=== PATIENT | female | born 1955 | race Caucasian/White ===

== ENCOUNTER → 2019-12-20 | Day surgery (SDC) | payer OTHER ==
[~2019-12-20] MED LIST: ALIGN4 MG PO; ASPIRIN325 MG PO; BENTYL10 MG PO; CLONAZEPAM1 MG PO; CYCLOBENZAPRINE10 MG PO; CYMBALTA30 MG PO; FENTANYL CITRATE/PF 100MCG/2 ML INJ ONE; FLEXERIL PO; GLUCAGON FOR INJ 1 MG VIAL ONE; HYDROCODONE PO; HYOSCYAMINE 0.125 MG TAB ONE; LANSOPRAZOLE30 MG PO; LIDOCAINE HCL 2% LOCAL INJ 5 ML SDV VIAL INJ ONE; MAGNESIUM OXID400 MG PO; MIDAZOLAM HCL 2 MG/2 ML VIAL ONE; OLANZAPINE5 MG PO; PANTOPRAZOLE SO40 MG PO; PROMETHAZINE HC25 M1 PO; PROPOFOL IV EMULSION 10 MG/ML 20 ML VIAL ONE; PROPRANOLOL HCL10 MG PO; RANITIDINE HCL300 MG PO; SIMVASTATIN80 MG PO; TAMOXIFEN CITRA20 MG PO; VENLAFAXINE HCL75 MG PO
[2019-12-20 13:25] VITALS: BP 140/83
--- NOTE | 2019-12-20 13:41 | Operative Report ---
DATE OF PROCEDURE: 12/20/2019 SURGEON: Abraham Lima MD PROCEDURE: Colonoscopy with polypectomy. INDICATION FOR COLONOSCOPY: Surveillance colonoscopy, personal history of colon polyp. MEDICATIONS: The patient was done under MAC, please see anesthesiologist's note. PROCEDURE IN DETAIL: With the patient in the left lateral decubitus position, a flexible fiberoptic Olympus colonoscope was inserted into the rectum with ease and advanced all the way to the cecum. A minute polyp was noted in the cecum that was removed per the cold biopsy forceps. The scope was then withdrawn slowly. Mucosa overlying the ascending, transverse, descending, and sigmoid other than for minimal diverticular disease in the sigmoid colon appeared to be within normal limits. The scope was then retroflexed into the distal rectum. Small internal hemorrhoids were noted, none of which was actively bleeding. The scope was straightened out and was subsequently withdrawn. The patient tolerated the procedure well. IMPRESSION: 1. Cecal polyp, removed per cold biopsy forceps. 2. Diverticulosis, minimal. 3. Internal hemorrhoids, none actively bleeding. PLAN: Follow up histology. Initiate high-fiber, low-fat diet. Initiate high-fiber supplement. The patient might benefit from a followup colonoscopy in 3 to 5 years. Abraham Lima MD [facility] – [place]/[facility] /[id number] cc: Jono Monroy DO
== END | disposition home or self-care (01) ==
LOC: OR 08:39
PROVIDERS: ATTEND Internal Medicine Gastroenterology
DX: Z09 Encounter for follow-up examination after completed treatment for conditions other than malignant neoplasm (principal); D12.0 Benign neoplasm of cecum; K57.30 Diverticulosis of large intestine without perforation or abscess without bleeding; K64.8 Other hemorrhoids; K29.60 Other gastritis without bleeding; K20.8 Other esophagitis; K21.9 Gastro-esophageal reflux disease without esophagitis; M79.606 Pain in leg, unspecified; E78.00 Pure hypercholesterolemia, unspecified; F31.9 Bipolar disorder, unspecified; F41.9 Anxiety disorder, unspecified; Z88.8 Allergy status to other drugs, medicaments and biological substances; Z88.1 Allergy status to other antibiotic agents; Z91.041 Radiographic dye allergy status; Z01.810 Encounter for preprocedural cardiovascular examination; Z01.812 Encounter for preprocedural laboratory examination; Z11.59 Encounter for screening for other viral diseases; Z79.82 Long term (current) use of aspirin; Z68.32 Body mass index [BMI] 32.0-32.9, adult
CPT/HCPCS: 45380; 93005; J1610; J2001; J2704; U0002; 45378; 45384; J2250; J3010

== ENCOUNTER → 2020-11-21 | Outpatient (CLI) | payer BC ==
[~2020-11-21] MED LIST changes: -FENTANYL CITRATE/PF 100MCG/2 ML INJ ONE; -GLUCAGON FOR INJ 1 MG VIAL ONE; -HYOSCYAMINE 0.125 MG TAB ONE; -LIDOCAINE HCL 2% LOCAL INJ 5 ML SDV VIAL INJ ONE; -MIDAZOLAM HCL 2 MG/2 ML VIAL ONE; -PROPOFOL IV EMULSION 10 MG/ML 20 ML VIAL ONE
== END ==
LOC: MRI 08:36
PROVIDERS: ATTEND Family Medicine
DX: S46.012A Strain of muscle(s) and tendon(s) of the rotator cuff of left shoulder, initial encounter (principal); M65.812 Other synovitis and tenosynovitis, left shoulder; M75.21 Bicipital tendinitis, right shoulder; X50.9XXA Other and unspecified overexertion or strenuous movements or postures, initial encounter